=== PATIENT | female | born 1955 | race Two or more races ===

== ENCOUNTER 2023-06-22 09:35 | Day surgery (SDC) | payer OTHER, MEDICAID ==
[~2023-06-22] VITALS: Ht 144.8 cm; Wt 50.3 kg
[~2023-06-22 09:35] MED LIST: ACETAMINOPHEN IV 1000 MG/100ML (10MG/ML) IV ONE; CELECOXIB 100 MG CAP PO ONE; GABAPENTIN 100 MG CAP PO ONE; IBUP-1454 PO
[2023-06-22] MEDS ORDERED: ceFAZolin 1GM/50ML 100 ML IV ONE (10:34)
[2023-06-22] MEDS ORDERED: DexAMETHasone SOD PHOS 4 MG/1ML SDV INJ ONE (11:13)
[2023-06-22] MEDS ORDERED: ceFAZolin 2 GM/D5W100ml 100 ML IV ONE (11:19)
[2023-06-22] MEDS ORDERED: LIDOCAINE 2% (LOCAL ANESTH.) PF 5ml SDV ONE (11:31)
[2023-06-22] MEDS ORDERED: PROPOFOL 10 MG/ML 20 ML IV ONE (11:31)
[2023-06-22] MEDS ORDERED: DexAMETHasone SOD PHOS 10MG/1ML VIAL INJ ONE (11:31)
[2023-06-22] MEDS ORDERED: ONDANSETRON HCL 4 MG/2 ML VIAL ONE (11:31)
[2023-06-22] MEDS ORDERED: KETOROLAC TROMETH 30 MG/ML 1ML VIAL ONE (11:31)
[2023-06-22] MEDS ORDERED: ePHEDrine SULFATE 50 MG/ML AMP ONE (12:02)
[2023-06-22 12:45] VITALS: TEMP 97.2; O2SAT 99
[2023-06-22] MEDS ORDERED: oxyCODONE HCL 5MG TAB PO PRN (13:00)
[2023-06-22] MEDS ORDERED: ePHEDrine SULFATE 50 MG/ML AMP IV PRN (13:00)
[2023-06-22] MEDS ORDERED: FLUMAZENIL 0.1 MG/ML INJ 10ML MDV IV PRN (13:00)
[2023-06-22] MEDS ORDERED: hydrALAZINE HCL 20 MG/ML VL IV PRN (13:00)
[2023-06-22] MEDS ORDERED: ONDANSETRON HCL 4 MG/2 ML VIAL IV PRN (13:00)
[2023-06-22] MEDS ORDERED: HYDROmorphone HCL 2 MG/ML VL/or syr IV PRN (13:00)
[2023-06-22] MEDS ORDERED: fentaNYL CITRATE 100 MCG/2 ML VL IV PRN (13:00)
[2023-06-22] MEDS ORDERED: NALOXONE HCL 0.4 MG/ML VIAL IV PRN (13:00)
[2023-06-22] MEDS ORDERED: LABETALOL HCL 5 MG/ML 4ML SYRINGE IV PRN (13:00)
[2023-06-22 13:40] VITALS: BP 120/65; PULSE 79; RESP 10; O2SAT 96
== END 2023-06-22 13:45 | disposition home or self-care (01) ==
LOC: SUR 09:35
PROVIDERS: ATTEND Orthopaedic Surgery Adult Reconstructive Orthopaedic Surgery
DX: S52.571A Other intraarticular fracture of lower end of right radius, initial encounter for closed fracture (principal); W19.XXXA Unspecified fall, initial encounter; Y93.89 Activity, other specified; Y92.89 Other specified places as the place of occurrence of the external cause; Y99.8 Other external cause status
CPT/HCPCS: 25609; 73100; 76000; C1713; J0131; J0690; J1100; J1170; J1885; J2001; J2405; J2704